=== PATIENT | female | born 1980 | race American Indian/Alaskan Native ===

== ENCOUNTER 2017-02-13 10:00 | Inpatient (IN) | payer OTHER ==
[~2017-02-13] VITALS: Ht 157.5 cm; Wt 91.6 kg
[~2017-02-13 10:00] MED LIST: SYNTHROID50 MCG
[2017-02-17] MEDS ORDERED: ACETAMINOPHEN500 M1 PO (12:50)
[2017-02-17] MEDS ORDERED: HYDROCORTISO453.6 G1 RECTAL (12:51)
[2017-02-17] MEDS ORDERED: LEVOTHYROXINE50 MCG PO (12:51)
== END 2017-02-17 13:49 | disposition home or self-care (01) | DRG 775 ==
LOC: LDR 02-15 10:00 → SURG-SUITE 02-15 16:13
PROC: 0KQM0ZZ Repair Perineum Muscle, Open Approach (ICD-10-PCS; principal; 2017-02-15)
PROC: 10E0XZZ Delivery of Products of Conception, External Approach (ICD-10-PCS; 2017-02-15)
PROC: 4A1HXCZ Monitoring of Products of Conception, Cardiac Rate, External Approach (ICD-10-PCS; 2017-02-15)
DX: O70.1 Second degree perineal laceration during delivery (principal); Z37.0 Single live birth; O69.81X0 Labor and delivery complicated by cord around neck, without compression, not applicable or unspecified; Z3A.39 39 weeks gestation of pregnancy